=== PATIENT | female | born 2000 | race American Indian/Alaskan Native ===

== ENCOUNTER 2021-10-22 18:48 | Emergency (ER) | payer SELFPAY ==
[2021-10-22 19:28] VITALS: BP 121/71
[2021-10-22 19:59] LABS: Basophils % (Auto) 0.2 % (0.0-1.8); Eosinophils # (Auto) 0.2 K/mm3 (0.0-0.4); Eosinophils % (Auto) 2.4 % (0.0-4.3); Hematocrit 35.7 % (30.3-42.9); Hemoglobin 11.8 gm/dl (10.1-14.3); Lymphocytes # (Auto) 3.1 K/mm3 (1.2-5.4); Lymphocytes % (Auto) 32.3 % (13.4-35.0); Mean Corpuscular HGB Conc 33 % (30-34); Mean Corpuscular Volume 84 fl (79-97); Monocytes # (Auto) 0.9 K/mm3 (0.0-0.8); Monocytes % (Auto) 9.3 % (0.0-7.3); Platelet Count 303 K/mm3 (140-440); Red Blood Count 4.27 M/mm3 (3.65-5.03); Red Cell Distribution Width 16.7 % (13.2-15.2)
[2021-10-22 20:17] LABS: Alanine Aminotransferase 9 units/L (7-56); Albumin 4.3 g/dL (3.9-5); Blood Urea Nitrogen 8 mg/dL (7-17); Calcium 9.4 mg/dL (8.4-10.2); Hemolysis Index 4
[2021-10-22 20:20] LABS: BUN/Creatinine Ratio 13
[2021-10-22 21:13] LABS: Bilirubin,Urine NEG (Negative); Blood,Urine NEG (Negative); Color,Urine Yellow (Yellow); Protein,Urine <15 mg/dL mg/dL (Negative); Urobilinogen,Urine < 2.0 mg/dL (<2.0)
[2021-10-22 21:21] LABS: Bacteria,Urine 2+ /HPF (Negative); Mucus,Urine FEW /HPF
--- NOTE | 2021-10-23 01:42 | Cat Scan Report ---
CT ABDOMEN AND PELVIS WITH CONTRAST INDICATION / CLINICAL INFORMATION: Lower Abdominal Pain. TECHNIQUE: Axial CT images were obtained through the abdomen and pelvis after 100 cc Omnipaque [address] scans at this location are performed using CT dose reduction for ALARA by means of automated exposure control. COMPARISON: None. Images from prior CT of the abdomen and pelvis 05/17/2015 are not available. FINDINGS: LOWER CHEST: No significant abnormality of the imaged chest. LIVER: No significant abnormality. Portal vein appears patent. GALLBLADDER / BILE DUCTS: Contracted Biliary ducts grossly unremarkable. SPLEEN: No significant abnormality. PANCREAS: No significant abnormality. ADRENALS: No significant abnormality. KIDNEYS/URETERS: No stones or hydronephrosis. No solid renal lesion. STOMACH / DUODENUM / SMALL BOWEL: The stomach, duodenum, and small bowel demonstrate no significant a bnormality. No specific abnormality of the mesentery demonstrated. COLON: The colon is not well distended. The ileocecal valve cannot be identified. APPENDIX: No significant abnormality. PERITONEUM: No free air or free fluid are present within the abdomen or pelvis. LYMPH NODES: No significant adenopathy. AORTA / ARTERIES: No significant abnormality. IVC / VEINS: No significant abnormality. URINARY BLADDER: No significant abnormality. REPRODUCTIVE ORGANS: Right ovarian cyst measures 3.1 x 3.1 x 3.9 cm. A large multiseptate thin-walled cystic lesion fills the left hemipelvis displacing the uterus and rectum rightward. This lesion emmie ures 13.9 cm greatest AP dimension, 8.0 cm greatest transverse dimension, and 9.5 cm greatest cranioc audal dimension. No normal left ovarian tissue can be identified. ADDITIONAL ABDOMINAL/PELVIC FINDINGS: None. SKELETAL SYSTEM: No significant abnormality. IMPRESSION: 1. A large multiseptate cystic lesion of the left pelvis is present generally thin septa and mass eff ect upon the uterus, urinary bladder, and rectum. This is thought to arise from the left ovary, the l eft ovarian pedicle cannot be identified secondary to phase of contrast and no normal ovarian tissue can be identified. Differential considerations could include serous cystadenoma, mucinous cystadenoma or other cystic ovarian lesion. 2. Right ovarian cyst as detailed. 3. Otherwise no acute findings are clearly demonstrated within the abdomen or pelvis. Signer Name: Fermin Case II, MD Signed: 10/23/2021 1:37 AM Workstation Name: [id number]
--- NOTE | 2021-10-23 03:30 | Emergency Department Report ---
ED Abdominal Pain HPI - General Chief Complaint: Abdominal Pain Stated Complaint: STOMACH PAIN/CONSTIPATION Time Seen by Provider: 10/22/21 23:08 Source: patient Mode of arrival: Ambulatory Limitations: No Limitations - History of Present Illness Initial Comments: 21-year-old female with past no history of Hirschsprung's disease which was treated with: A second child who presented to department complaining of a few day history of constipation and left-sided abdominal pelvic pain of unknown etiology she reports episode of nausea and 1 episode of vomiting. No diarrhea, no fever, chills, sweats. No hemoptysis no hematemesis no hematochezia, no ches t pain or palpitation. -: Gradual Radiation: none Migration to: no migration Severity: moderate, severe Quality: aching, dull Improves With: nothing Worsens With: nothing Associated Symptoms: denies other symptoms - Related Data Home Medications Medication Instructions Recorded Confirmed Last Taken No Known Home Medications [No 05/17/15 05/17/15 Unknown Reported Home Medications] Allergies Allergy/AdvReac Type Severity Reaction Status Date / Time strawberry Allergy Swelling Verified 05/17/15 15:47 ED Review of Systems ROS: Stated complaint: STOMACH PAIN/CONSTIPATION Other details as noted in HPI Comment: All other systems reviewed and negative ED Past Medical Hx - Past Medical History Additional medical history: HIRSCHSPRUNG DISEASE - Social History Smoking Status: Never Smoker Substance Use Type: None - Medications Home Medications: Home Medications Medication Instructions Recorded Confirmed Last Taken Type No Known Home Medications [No 05/17/15 05/17/15 Unknown History Reported Home Medications] ED Physical Exam - General Limitations: No Limitations General appearance: alert, in no apparent distress - Head Head exam: Present: atraumatic, normocephalic - Eye Eye exam: Present: normal appearance, PERRL, EOMI Pupils: Present: normal accommodation - ENT ENT exam: Present: normal exam, mucous membranes moist - Neck Neck exam: Present: normal inspection, full ROM - Respiratory Respiratory exam: Present: normal lung sounds bilaterally. Absent: respiratory distress - Cardiovascular Cardiovascular Exam: Present: regular rate, normal rhythm. Absent: systolic murmur, diastolic murmur, rubs, gallop - GI/Abdominal GI/Abdominal exam: Present: soft, tenderness (Left lower quadrant and suprapubic region), normal bowel sounds, other. Absent: guarding, rebound - Extremities Exam Extremities exam: Present: normal inspection, normal capillary refill - Back Exam Back exam: Present: normal inspection. Absent: CVA tenderness (R), CVA tenderness (L) - Neurological Exam Neurological exam: Present: alert, oriented X3, CN II-XII intact - Psychiatric Psychiatric exam: Present: normal affect, normal mood - Skin Skin exam: Present: warm, dry, intact, normal color. Absent: rash ED Course Vital Signs 10/22/21 19:23 Temperature 98.7 F Pulse Rate 66 Respiratory 16 Rate Blood Pressure 121/71 O2 Sat by Pulse 99 Oximetry ED Medical Decision Making - Lab Data Result diagrams: 10/22/21 19:32 10/22/21 19:32 - Radiology Data Radiology results: report reviewed [facility] [address] [id number] Cat Scan Report Signed Patient: MARTA HOWARD MR#: [id number] : 2000 Acct:[id number] Age/Sex: 21 / F ADM Date: 10/22/21 Loc: ED Attending Dr: Ordering Physician: YAMINI SHELTON Date of Service: 10/22/21 Procedure(s): CT abdomen pelvis w con Accession Number(s): [id number] cc: YAMINI SHELTON CT ABDOMEN AND PELVIS WITH CONTRAST INDICATION / CLINICAL INFORMATION: Lower Abdominal Pain. TECHNIQUE: Axial CT images were obtained through the abdomen and pelvis after 1 00 cc Omnipaque [address] scans at this location are performed using CT dose reducti on for ALEXA by means of automated exposure control. COMPARISON: None. Images from prior CT of the abdomen and pelvis 05/17/2015 are not available. FINDINGS: LOWER CHEST: No significant abnormality of the imaged chest. LIVER: No significant abnormality. Portal vein appears patent. GALLBLADDER / BILE DUCTS: Contracted Biliary ducts grossly unremarkable. SPLEEN: No significant abnormality. PANCREAS: No significant abnormality. ADRENALS: No significant abnormality. KIDNEYS/URETERS: No stones or hydronephrosis. No solid renal lesion. STOMACH / DUODENUM / SMALL BOWEL: The stomach, duodenum, and small bowel demonstrate no significant abnormality. No specific abnormality of the mesentery demonstrated. COLON: The colon is not well distended. The ileocecal valve cannot be identified. APPENDIX: No significant abnormality. PERITONEUM: No free air or free fluid are present within the abdomen or pelvis. LYMPH NODES: No significant adenopathy. AORTA / ARTERIES: No significant abnormality. IVC / VEINS: No significant abnormality. URINARY BLADDER: No significant abnormality. REPRODUCTIVE ORGANS: Right ovarian cyst measures 3.1 x 3.1 x 3.9 cm. A large multiseptate thin- walled cystic lesion fills the left hemipelvis displacing the uterus and rectum rightward. This lesion measures 13.9 cm greatest AP dimension, 8.0 cm greatest transverse dimension, and 9.5 cm greatest craniocaudal dimension. No normal left ovarian tissue can be identified. ADDITIONAL ABDOMINAL/PELVIC FINDINGS: None. SKELETAL SYSTEM: No significant abnormality. IMPRESSION: 1. A large multiseptate cystic lesion of the left pelvis is present generally thin septa and mass effect upon the uterus, urinary bladder, and rectum. This is thought to arise from the left ovary, the left ovarian pedicle cannot be identified secondary to phase of contrast and no normal ovarian tissue can be identified. Differential considerations could include serous cystadenoma, mucinous cystadenoma or other cystic ovarian lesion. 2. Right ovarian cyst as detailed. 3. Otherwise no acute findings are clearly demonstrated within the abdomen or p elver. Signer Name: Minerva Orellana II, MD Signed: 10/23/2021 1:37 AM Workstation Name: [id number] Transcribed By: ALDO Dictated By: MINERVA ORELLANA II, MD Electronically Authenticated By: MINERVA ORELLANA II, MD Signed Date/Time: 10/23/21136 DD/ 6 TD/TT: Print Critical care attestation.: If time is entered above; I have spent that time in minutes in the direct care of this critically ill patient, excluding procedure time. ED Disposition Clinical Impression: Abdominal pain, Pelvic mass Disposition: 01 HOME / SELF CARE / HOMELESS Is pt being admited?: No Does the pt Need Aspirin: No Condition: Stable Instructions: Abdominal Pain (ED), Pelvic Mass, Female, Abdominal Pain, Adult, [id number], Abdominal Pain, Adult Referrals: [facility] [Provider Group] - 3-5 Days
== END 2021-10-23 04:07 | disposition home or self-care (01) ==
LOC: ED 18:48
DX: R10.9 Unspecified abdominal pain (principal); R19.00 Intra-abdominal and pelvic swelling, mass and lump, unspecified site; Z91.018 Allergy to other foods
CPT/HCPCS: 36415; 74177; 80053; 81001; 84703; 85025; 87086; 99284; Q9967